=== PATIENT | female | born 1945 | race Caucasian/White ===

== ENCOUNTER 2017-05-29 10:22 | Outpatient (RCR) | payer MEDICARE, MEDICAID ==
[2015-06-17 09:43] VITALS: BMI 38.8
[~2017-05-29 10:22] MED LIST: ALPR-699 PO; ASPI-757 PO; ATOR20TA65 PO; BENA40TA52 PO; CIP500 PO; DIA5 PO; DULO60CA51 PO; DYA PO; GLIM2TAB43 PO; LID5T TOP; LOR5/325 PO; LOR7.5/325 PO; MAX75 PO; METR-1 PO; METXR500 PO; PANT40TA65 PO; PER PO; PRAV20TA66 PO; TRAM-420 PO; TRAM100T22 PO
--- NOTE | 2017-05-29 10:59 | RADIOLOGY IMAGING REPORT ---
FACILITY: [facility] - [place] PATIENT NAME: Larissa Jiménez : 1945 MR: [id number] V: [id number] EXAM DATE: ORDERING PHYSICIAN: STEVE ALLAN TECHNOLOGIST: Location: [facility] Patient: Larissa Jiménez : 1945 Visit/Account:[id number] Date of Sevice: 05/29/2017 AP chest, one view. HISTORY: Sleep apnea. COMPARISON: 06/04/2015, 09/13/2013. Slight fullness is present in the pulmonary saira bilaterally, essentially unchanged. The heart and m ediastinum are otherwise unremarkable. Pulmonary vessels are otherwise unremarkable. The lungs are otherwise clear. The pleural surfaces are unremarkable. No pneumothorax. Degenerative changes are pr esent in the spine. IMPRESSION: Borderline hilar enlargement, unchanged. Otherwise no evidence of acute cardiopulmonary disease. Report Dictated By: Raj Freeman MD at 05/29/2017 10:50 AM Report E-Signed By: Raj Freeman MD at 05/29/2017 10:54 AM WSN:[email or web address]
--- NOTE | 2017-06-01 10:48 | RADIOLOGY IMAGING REPORT ---
FACILITY: [facility] - [place], [place] PATIENT NAME: EDEN HUERTA : [id number] MR: [id number] V: [id number] EXAM DATE: ORDERING PHYSICIAN: STEVE ALLAN TECHNOLOGIST: Namrata Thorne EXAMINATION:TWO-DIMENSIONAL ECHOCARDIOGRAPH REASON:SYSTOLIC MURMUR/PRESURG/SOB 2D Measurements (normal values in centimeters) LV endLV endRV endVent.LV PostAorticLeftPercent DiastolicSystolicDiastolicSeptumWallRootAtriumShortening (3.5-5.7)(0.9-2.6)(0.6-1.1)(0.6-1.1)(2.0-3.7)(1.9-4.0)(25-35%) [id number]% STROKE VOLUME: 49ml ESTIMATED EJECTION FRACTION:71% PARASTERNAL LONG AXIS: Overall left ventricular systolic function appears to be normal. Right ventricle appears to be mildly enlarged. There is somewhat asymmetric left ventricular thickening more along the interventricular septum. Color examination of the valves revealed a trace of mitral & aortic insufficiency present. The aortic valve area appears to be mildly stenotic. There is calcification of the aortic valve leaflets. Trace of tricuspid insufficiency is also noted. PARASTERNAL SHORT AXIS: Overall left ventricular function appears to be normal. Right ventricle appears to be mildly enlarged. The aortic valve is trileaflet in configuration & appears to be borderline stenotic with calcification of the valve leaflets. Trace of aortic insufficiency is noted. Trace to mild amount of pulmonic insufficiency is also noted. APICAL FOUR AND TWO CHAMBER: Normal left ventricular ejection fraction. Right ventricle mildly enlarged. The aortic valve area was measured at 1.6cm2 with a mean pressure gradient across the valve of 17mm Hg & a dimensionless index of .6 indicating mild aortic stenosis. Mitral valve area is measured within normal ranges at 3.5cm2. The left atrial & right atrial volumes are measured within normal ranges at 17 & 13ml/m2. The tricuspid regurgitation Vmax measured 1.87m/sec. SUBCOSTAL VIEW: No pericardial effusion was noted. No atrioseptal or ventriculoseptal defects were appreciated. There is mild thinning of the inner atrial septum in the foramen ovale area. Doppler examination of the mitral valve in diastole does reveal the A wave > E wave. Definity contrast was used with no significant gradient to the left ventricle. OVERALL IMPRESSION: 1. Normal left ventricular ejection fraction of 71% with a mild decrease in diastolic function. 2. There is somewhat asymmetric left ventricular thickening more along the interventricular septum which is moderately enlarged. No outflow tract obstruction. No obstruction through the left ventricle was noted. Definity contrast was used. 3. Mild right ventricular enlargement. 4. A trileaflet aortic valve which is mildly stenotic with a valve area of 1.67cm2. The mean pressure gradient across the valve was 17mm Hg & a dimensionless index of .6. There is also a trace of aortic insufficiency. 5. A trace of mitral & tricuspid insufficiency with estimated right ventricular systolic pressure within normal ranges at 17mm Hg. 6. There is a mild amount of pulmonic insufficiency presenst. Dictated by: Yen Pate M.D. on 05/31/2017 at 20:31 Transcribed by: LANDON on 06/01/2017 at 9:31 Approved by: Yen Pate M.D. on 06/01/2017 at 10:47 [facility]
== END 2017-05-31 18:00 | disposition home or self-care (01) ==
LOC: RAD 10:22
PROVIDERS: ATTEND Family Medicine
DX: Z01.818 Encounter for other preprocedural examination (principal); R01.1 Cardiac murmur, unspecified; I51.7 Cardiomegaly; I35.1 Nonrheumatic aortic (valve) insufficiency; I34.0 Nonrheumatic mitral (valve) insufficiency; I36.1 Nonrheumatic tricuspid (valve) insufficiency; I37.1 Nonrheumatic pulmonary valve insufficiency
CPT/HCPCS: 71045; 93306

== ENCOUNTER → 2017-06-02 | Outpatient (REF) | payer MEDICARE, MEDICAID ==
[2015-06-17 09:43] VITALS: BMI 38.8
== END ==
LOC: ZZSENDIN 10:59
PROVIDERS: ATTEND Family Medicine
DX: Z01.812 Encounter for preprocedural laboratory examination (principal)
CPT/HCPCS: 81001

== ENCOUNTER → 2017-06-12 | Outpatient (REF) | payer MEDICARE, MEDICAID ==
[2015-06-17 09:43] VITALS: BMI 38.8
== END ==
LOC: ZZSENDIN 12:06
PROVIDERS: ATTEND Family Medicine
DX: Z01.812 Encounter for preprocedural laboratory examination (principal)
CPT/HCPCS: 81001

== ENCOUNTER → 2017-08-30 | Outpatient (CLI) | payer MEDICARE, MEDICAID ==
[2015-06-17 09:43] VITALS: BMI 38.8
== END ==
LOC: RESP 19:32
PROVIDERS: ATTEND Registered Nurse
DX: G47.33 Obstructive sleep apnea (adult) (pediatric) (principal); G47.61 Periodic limb movement disorder; G47.36 Sleep related hypoventilation in conditions classified elsewhere

== ENCOUNTER → 2017-10-20 | Outpatient (REF) | payer MEDICARE, MEDICAID ==
[2015-06-17 09:43] VITALS: BMI 38.8
== END ==
LOC: ZZSENDIN 13:38
PROVIDERS: ATTEND Family Medicine
DX: Z01.812 Encounter for preprocedural laboratory examination (principal)
CPT/HCPCS: 81001

== ENCOUNTER 2017-10-31 02:33 | Inpatient (IN) | payer MEDICARE, MEDICAID ==
[2017-10-30 14:53] LABS: INR 0.93
[~2017-10-31] VITALS: Ht 165.1 cm; Wt 103.4 kg
[2017-10-31] VITALS (15 sets, daily range): BP systolic 97–158; BP diastolic 62–102
[~2017-10-31 02:33] MED LIST changes: +DIAZ-308 PO; +LOSA100T67 PO; +RISP-29 PO
--- NOTE | 2017-10-31 07:36 | LEVENE H&P ---
DATE OF ADMISSION: October 31, 2017 IDENTIFICATION/CHIEF COMPLAINT The patient is a 71-year-old woman with a chief complaint of left hip pain. HISTORY OF PRESENT ILLNESS The patient has a longstanding history of hip arthritis, progressively painful and debilitating and refractory to conservative care. Surgery is indicated to relieve symptoms after failure of nonoperative measures. PAST MEDICAL HISTORY 1. Heart murmur. 2. Hypertension. 3. Sleep apnea. 4. Diabetes. PAST SURGICAL HISTORY 1. Back operation. 2. Contralateral hip replacement. 3. Hysterectomy. 4. Cholecystectomy. ALLERGIES PROZAC and AMBIEN. CURRENT MEDICATIONS 1. Duloxetine 6 mg p.o. every day. 2. Pantoprazole 40 mg p.o. every day. 3. Losartan 100 mg p.o. every day. 4. Atorvastatin 12.5 mg p.o. every day. 5. Metformin 500 mg p.o. b.i.d. 6. Triamterene/hydrochlorothiazide 75/50 p.o. 1/2 tablet every day. FAMILY HISTORY Brother with cancer and stroke. SOCIAL HISTORY Negative for tobacco and alcohol use. REVIEW OF SYSTEMS Negative. PHYSICAL EXAMINATION GENERAL: This is a well-developed, well-nourished female who appears stated age. HEENT: Normocephalic, atraumatic. NECK: Supple. LUNGS: Clear. HEART: Regular. ABDOMEN: Soft. ORTHOPEDIC EXAMINATION Left hip is stiff with limits of rotation. This reproduces her pain. Hip girdle strength is normal. Skin envelope is intact. Calves are nontender. Neurovascular function is intact. RADIOGRAPHS Radiographs demonstrate end-stage hip arthritis. ASSESSMENT Left hip end-stage degenerative joint disease, progressively painful and debilitating, refractory to conservative care. PLAN Per patient request, we are going to proceed with total hip arthroplasty. The nature of the procedure, risks, benefits and the anticipated rehabilitative course were reviewed. Risks include, but are not limited to, , major medical or anesthetic complication, infection, neurovascular injury, blood transfusion, stiffness, scarring, fracture, tendon rupture, instability, leg length discrepancy, implant loosening, migration or failure, need for additional surgery and other unforeseen. She understands and wishes to proceed. A signed permit is placed in the chart. No guarantees are given or implied. LIZZETH
[2017-10-31] MEDS ORDERED: CELECOXIB 200 MG CAP ONE (09:09)
[2017-10-31] MEDS ORDERED: fentaNYL CITR 100 MCG/2 ML AMP ONE (09:30)
[2017-10-31] MEDS ORDERED: PROPOFOL EMUL(*) 10MG/ML 20 ML 20 ML ONE (09:31)
[2017-10-31] MEDS ORDERED: LIDOCAINE MPF 1% 5 ML VIAL ONE (09:31)
[2017-10-31] MEDS ORDERED: DEXAMETHASONE SOD PHOS 10MG/ML ONE (09:31)
[2017-10-31] MEDS ORDERED: ONDANSETRON 4 MG/2 ML VIAL ONE (09:31)
[2017-10-31] MEDS ORDERED: PHENYLEPHRINE 10 MG/1 ML VIAL ONE (11:00)
[2017-10-31] MEDS ORDERED: MIDAZOLAM 2 MG/2 ML VIAL IVP PRN (11:15)
[2017-10-31] MEDS ORDERED: LIDOCAINE/SOD BICARB 8.4% SYR ID ONE (11:15)
[2017-10-31] MEDS ORDERED: TRANEXAMIC AC 1000 MG/10ML SDV 1,000 MG in DEXTROSE 5% 50 ML BAG 50 ML IV ONE (11:15)
[2017-10-31] MEDS ORDERED: cloNIDine EPIDUR INJ 100MCG/ML 40 MCG, ROPIVACAINE 0.5% 20 ML VIAL 25 ML, EPINEPHrine H... INJ ONE (11:15)
[2017-10-31] MEDS ORDERED: CELECOXIB 200 MG CAP PO ONE (11:15)
[2017-10-31] MEDS ORDERED: NORMOSOL R SOLN(*) 1000 ML BAG 1,000 ML IV PRN ×2 (11:15→13:40)
[2017-10-31] MEDS ORDERED: ACETAMINOPHEN 500 MG TAB PO ONE (11:15)
[2017-10-31] MEDS ORDERED: ceFAZolin(*) 2GM/D5W 50ML 50 ML IVPB ONE (11:15)
[2017-10-31] MEDS ORDERED: PREGABALIN 75 MG CAPSULE PO ONE (11:15)
[2017-10-31] MEDS ORDERED: NS 0.9% IRRIGATION 1000ML PLCT IR ONE (12:05)
[2017-10-31] MEDS ORDERED: LACTATED RINGER 3000 ML BAG IR ONE (12:05)
[2017-10-31] MEDS ORDERED: VANCOMYCIN 1 GM VIAL ONE (12:37)
[2017-10-31] MEDS ORDERED: PROMETHAZINE 25 MG/ML 1 ML AMP IVP PRN (13:40)
[2017-10-31] MEDS ORDERED: MAGNESIUM HYDROXIDE* 30ML UDCP PO PRN (13:40)
[2017-10-31] MEDS ORDERED: ACETAMINOPHEN 325 MG TAB PO PRN (13:40)
[2017-10-31] MEDS ORDERED: BISACODYL 10 MG SUPP PR PRN (13:40)
[2017-10-31] MEDS ORDERED: BENZOCAINE/MENTHOL 1 EACH LOZG PO PRN (13:40)
[2017-10-31] MEDS ORDERED: diphenhydrAMINE 50 MG/ML VIAL IVP PRN (13:40)
[2017-10-31] MEDS ORDERED: DIAZEPAM 5 MG TAB PO PRN (13:40)
[2017-10-31] MEDS ORDERED: diphenhydrAMINE 25 MG CAP PO PRN (13:40)
[2017-10-31] MEDS ORDERED: FLUSH 10 ML SYR IVP PRN (13:40)
--- NOTE | 2017-10-31 14:51 | RADIOLOGY IMAGING REPORT ---
FACILITY: [facility] PATIENT NAME: Larissa Jiménez : 1945 MR: [id number] V: [id number] EXAM DATE: ORDERING PHYSICIAN: JOSH ALEMAN TECHNOLOGIST: Location: [facility] - [place] Patient: Larissa Jiménez : 1945 Visit/Account:[id number] Date of Sevice: 10/31/2017 PELVIS INDICATION: Postop left total hip COMPARISON: 06/16/2015 FINDINGS: Compared to the prior study, patient has undergone left DARRON. Two-part cementless prosthetic appears in good alignment. The visualized pelvis is intact IMPRESSION: 1. Unremarkable left DARRON Report Dictated By: Mike Tompkins at 10/31/2017 2:45 PM Report E-Signed By: Mike Tompkins at 10/31/2017 2:47 PM WSN:[email or web address]
--- NOTE | 2017-10-31 16:00 | Hospitalist Consultation ---
History of Present Illness Requesting Physician Dr. Gomez Reason for Consult Medical Management Chief Complaint s/p left total hip replacement History of Present Illness She was admitted s/p left total hip replacement. It is reported the surgery went well and without complication. History Problems: (1) JORGE (obstructive sleep apnea) Status: Chronic (2) Depression with anxiety Status: Chronic (3) Type 2 diabetes mellitus Status: Chronic (4) HTN (hypertension) Status: Chronic (5) GERD (gastroesophageal reflux disease) Status: Chronic (6) Hyperlipidemia Status: Chronic Home Meds Reported Medications Losartan Potassium (LOSARTAN POTASSIUM) 100 Mg Tablet, 100 MG PO QDAY 10/24/17 Risperidone (RISPERDAL) 1 Mg Tablet, 1 MG PO HS 10/24/17 Diazepam (DIAZEPAM) 5 Mg Tablet, 5 MG PO DAILY, #5 TAB 10/24/17 Atorvastatin Calcium (ATORVASTATIN CALCIUM) 20 Mg Tablet, 2 TAB PO QHS, TAB 06/10/15 Tramadol Hcl (TRAMADOL HCL) 50 Mg Tablet, 50 MG PO QID PRN for PAIN, TAB 06/10/15 Pantoprazole Sodium (PANTOPRAZOLE SODIUM) 40 Mg Tablet.dr, 40 MG PO QAM, TAB.SR 09/13/13 Triamterene/Hctz (TRIAMTERENE-HCTZ 75-50 MG TAB) 1 Each Tab, 0.5 TAB PO QAM, TAB 09/13/13 Duloxetine Hcl (Cymbalta) 60 Mg Capsule.dr, 60 MG PO BID, 0 Refills 01/30/11 Metformin Hcl (Metformin Er) 500 Mg Tab.sr.24h, 1000 MG PO BID, 0 Refills 01/30/11 Discontinued Reported Medications Hydrocodone Bit/Acetaminophen (HYDROCODON-ACETAMINOPHEN 5-325) 1 Each Tablet, 1- 2 TAB PO Q4-6H PRN for PAIN, #80 TAB 06/18/15 Glimepiride (GLIMEPIRIDE) 2 Mg Tablet, 2 MG PO QAM 09/13/13 Benazepril Hcl 40 MG TAB (Benazepril Hcl 40 MG TAB) 40 Mg Tablet, 40 MG PO QAM, 0 Refills 01/30/11 Discontinued Scripts Aspirin (ASPIRIN) 325 Mg Tablet, 325 MG PO QDAY for 30 Days, TAB 0 Refills Prov:TINO RANDHAWA MD 06/19/15 Allergies: Coded Allergies: fluoxetine (Verified Allergy, Intermediate, "TRIP WITHOUT LEAVING THE FARM", 06/10/15) zolpidem (Verified Allergy, Intermediate, SHAKES, 10/24/17) Patient History: FHx: colon cancer BROTHER OR SISTER FHx: diabetes mellitus MOTHER FHx: stroke MOTHER TIAs FATHER Hx Smoking: No Smoking Status: Never Smoker Caffeine Intake: Tea Caffeine/Cups Per Day: 1-2 CUPS YEARLY Hx Alcohol Use: No Hx Substance Use Disorder: No Social Drug Use: Never History of IV Drug Use: No Review of Systems All Systems Reviewed/Normal: Yes, Except as Noted Exam Vital Signs Vital Signs Date Time Temp Pulse Resp B/P (MAP) Pulse Ox O2 Delivery O2 Flow Rate FiO2 10/31/17 15:36 Nasal Cannula 2.0 10/31/17 15:15 80 12 91 10/31/17 15:07 97.9 139/72 (94) General Appearance: Alert, Awake, No Acute Distress, Afebrile Neuro: No Gross deficits Cardiovascular: Regular Rate and Rhythm Respiratory: No Respiratory Distress, Clear to Auscultation Psych: Alert & Oriented X3, Appropriate Mood & Affect Assessment and Plan Problems: (1) Status post total hip replacement, left Status: Acute Assessment & Plan: Followed by Dr. Gomez. She will be placed on Aspirin fro VTE prophylaxis. She has no history of DVT or PE. (2) HTN (hypertension) Status: Chronic Assessment & Plan: She is on chronic treatment with Losartan, HCTZ, Triamterene. The losartan has been restarted with hold parameters. (3) Type 2 diabetes mellitus Status: Chronic Assessment & Plan: She is on chronic treatment with Metformin. She will be placed on ADA diet, AC/HS blood glucose monitoring, and SSI #2. (4) JORGE (obstructive sleep apnea) Status: Chronic Assessment & Plan: She did not tolerate CPAP. She does wear 2L oxygen at all times. (5) Depression with anxiety Status: Chronic Assessment & Plan: She is on chronic treatment with Risperdal, Cymbalta and Valium. (6) GERD (gastroesophageal reflux disease) Status: Chronic Assessment & Plan: She is on chronic treatment with Protonix. (7) Hyperlipidemia Status: Chronic Assessment & Plan: She is on chronic treatment with Atorvastatin. Venous Thromboembolism Antithrombotics Is Pt On Any Antithrombotics?: No Exam Sepsis Risk: No Definite Risk Problem Qualifiers (1) HTN (hypertension): Hypertension type: essential hypertension Qualified Codes: I10 - Essential (primary) hypertension RICH GOODRICH [employer] OPERATOR Oct 31, 2017 16:00
[2017-10-31] MEDS: CELECOXIB 200 MG CAP PO SCH (17:35)
[2017-10-31] MEDS: INSULIN HUM LISPRO 100 UN/ML 3 ML VIAL SUBQ PRN ×2 (17:36→20:12)
[2017-10-31] MEDS: ceFAZolin(*) 1 GM VIAL 1 GM in NS(*) 0.9% 100 ML ADDVANT BAG 100 ML IV SCH (19:01)
--- NOTE | 2017-10-31 19:42 | OPERATIVE REPORT 1 ---
EVENT DATE: October 31, 2017 SURGEON: Brent Gomez MD ANESTHESIOLOGIST: Suleiman Barrios MD ANESTHESIA: General plus spinal. HEEL COVER SOFTENER: ELIZA Turpin PREOPERATIVE DIAGNOSIS Left hip degenerative joint disease. POSTOPERATIVE DIAGNOSIS Left hip degenerative joint disease. PROCEDURE PERFORMED Left total hip arthroplasty. ESTIMATED BLOOD LOSS 400 mL DRAINS None. SPECIMENS None. COMPLICATIONS None apparent. IMPLANTS USED Shyanne system with SecurFit Max 132-degree neck, angled hip stem size 9, a Biolox Delta Ceramic C-Taper femoral head 36 mm, +2.5, a Trident PSL VANEGAS cluster acetabular shell 52 with a 36 mm, zero-degree polyethylene X3 liner. INDICATIONS Larissa has with intractable pain and disability related to end-stage hip arthritis. Surgery is indicated to relieve symptoms after failure of nonoperative measures. DESCRIPTION OF PROCEDURE Patient was taken to the operating room, placed supine on the operating table. Spinal block is administered by the anesthesiologist. General anesthesia is induced. Antibiotics and TXA are administered IV. Patient is positioned in the right lateral decubitus on a well-padded pegboard. Pelvis is secured in a vertical position. All bony prominences and superficial nerves are well padded. Left hip girdle and lower extremity are prepped and draped in the usual sterile fashion for orthopedic surgery. A posterolateral incision is made, centered over the tip of the trochanter. Incision is carried down through the skin and subcutaneous tissue down to the deep fascia. Fascia is incised over the center of the tip of the trochanter, extended distally in line with the femur and proximally in line with the ja fibers. Ja fibers are split bluntly. Trochanteric bursa is excised. Interval between the abductor and external rotator is identified. Abductor mechanism is protected with a blunt Hohmann. An L capsulotomy/tenotomy is performed with the horizontal limb above the piriformis, peeling the external rotators and the capsule off the back of the femur. These are tagged with #2 Vicryl for later anatomic reattachment. Femoral head is dislocated. End-stage arthritis is noted. A 1.5 cm neck cut is made consistent with preoperative templating. Femoral head is extracted. Femur is translocated anteriorly. Deirdre-acetabular retractors are placed with the tips down on bone. Labrum and pulvinar are excised. A 44 mm reamer is used to medialize through the true medial wall of the acetabulum. This is expanded in 2 mm increments up to 52 where nice rim contact is obtained. Trial has nice [id number] fit. A 53 is used to open the floor of the acetabulum to accommodate the raised rim liner. The surface is lavaged. The actual shell is impacted in approximately 45 degrees of lateral opening and 15 degrees of anteversion using the internal bony landmarks, transverse acetabular ligament, and the extracorporeal guide to guide socket placement. Rock-solid fixation is achieved. No adjuvant fixation is felt to be needed. A liner is inserted and impacted into the cup. Attention is turned to femoral preparation. The superior neck is resected with a Shoot Extreme cutter. [facility] finds the canal. Tapered reaming is performed up to 9 where good endosteal contact is obtained. Broaching starts with 7 and works up to 9, taking care to lateralize and follow the inaja version of the calcar to about 15 degrees. The 9 broach has good fit and fill. Trial reduction is performed off this, and good protestant of limb length and stability are achievable. The broach is removed, and the actual stem is impacted. It seats at about the same height. The +2.5 neck length seems ideal for protestant of soft tissue tension and stability. Surfaces are lavaged and dried. The Stone taper is cleaned and dried, and then the actual head is impacted onto the Stone taper. Joint is reduced. Drill holes are placed in the posterolateral femur to reattach the external rotators and the capsule anatomically. Hemostasis was assured. Wound margins are distended with a pain cocktail. Deep fascia closed distally with #2 Ethibond, proximally with #2 Vicryl, subcutaneous tissue with 3-0 Vicryl, skin with surgical alfonzo. Xeroform is applied, followed by a dry, sterile dressing and a hip wrap. Patient is rolled supine. Abduction pillow is placed. She is awakened from anesthesia and taken to the recovery room in stable condition having tolerated the procedure well. PLAN Plan is for standard DARRON rehab protocol, weightbearing as tolerated, and posterior hip precautions. [facility]
[2017-10-31] MEDS: metFORMIN HCL XR 500 MG TABCR PO SCH (20:15)
[2017-10-31] MEDS: risperiDONE 1 MG TAB PO SCH (20:15)
[2017-10-31] MEDS: ATORVASTATIN 10 MG TAB PO SCH (20:16)
[2017-10-31] MEDS: DULoxetine HCL 30 MG CAPCR PO SCH (20:16)
[2017-10-31] MEDS: APAP/HYDROCODONE 325/7.5 TAB PO PRN (22:06)
[2017-11-01] VITALS (7 sets, daily range): BP systolic 121–148; BP diastolic 53–82; Ht 165.1 cm; Wt 103.4 kg
[2017-11-01] MEDS: APAP/HYDROCODONE 325/7.5 TAB PO PRN ×4 (03:22→23:43)
[2017-11-01] MEDS: ceFAZolin(*) 1 GM VIAL 1 GM in NS(*) 0.9% 100 ML ADDVANT BAG 100 ML IV SCH ×2 (03:22→11:17)
[2017-11-01] MEDS: DULoxetine HCL 30 MG CAPCR PO SCH ×2 (08:22→20:48)
[2017-11-01] MEDS: ASPIRIN 325 MG TAB PO SCH (08:22)
[2017-11-01] MEDS: metFORMIN HCL XR 500 MG TABCR PO SCH (08:22)
[2017-11-01] MEDS: CELECOXIB 200 MG CAP PO SCH ×2 (08:22→16:57)
[2017-11-01] MEDS: PANTOPRAZOLE SOD 40 MG TABEC PO SCH (08:22)
[2017-11-01] MEDS: LOSARTAN POTASSIUM 50 MG TAB PO SCH (08:23)
--- NOTE | 2017-11-01 11:02 | Hospitalist Progress Note ---
Subjective Progress Notes Subjective She has no complaints this morning. She had no acute events overnight. Patient Complains of: Cardiovascular: No: Chest Pain Respiratory: No: Shortness of Breath Physical Exam Vital Signs Date Time Temp Pulse Resp B/P (MAP) Pulse Ox O2 Delivery O2 Flow Rate FiO2 11/01/17 07:45 97.9 76 16 121/53 (75) 94 Nasal Cannula 1.0 Intake and Output 11/01/17 06:59 Intake Total 2925 ml Output Total 150 ml Balance 2775 ml Intake Oral 600 ml IV Total 2325 ml Output Estimated Blood Loss 150 ml # Voids 3 General Appearance: Alert, Awake, No Acute Distress, Afebrile Neuro: No Gross deficits Cardiovascular: Regular Rate and Rhythm Respiratory: No Respiratory Distress, Clear to Auscultation Psych: Alert & Oriented X3, Appropriate Mood & Affect Assessment and Plan Problems: (1) Status post total hip replacement, left Status: Acute Assessment & Plan: Followed by Dr. Gomez. She will be placed on Aspirin for VTE prophylaxis. She has no history of DVT or PE. (2) HTN (hypertension) Status: Chronic Assessment & Plan: She is on chronic treatment with Losartan, HCTZ, Triamterene. The losartan has been restarted with hold parameters. (3) Type 2 diabetes mellitus Status: Chronic Assessment & Plan: She is on chronic treatment with Metformin. She will be placed on ADA diet, AC/HS blood glucose monitoring, and SSI #2. (4) JORGE (obstructive sleep apnea) Status: Chronic Assessment & Plan: She did not tolerate CPAP. She does wear 2L oxygen at all times. (5) Depression with anxiety Status: Chronic Assessment & Plan: She is on chronic treatment with Risperdal, Cymbalta and Valium. (6) GERD (gastroesophageal reflux disease) Status: Chronic Assessment & Plan: She is on chronic treatment with Protonix. (7) Hyperlipidemia Status: Chronic Assessment & Plan: She is on chronic treatment with Atorvastatin. Exam Sepsis Risk: No Definite Risk Problem Qualifiers (1) HTN (hypertension): Hypertension type: essential hypertension Qualified Codes: I10 - Essential (primary) hypertension RICH GOODRICH GAMBLING CASHIER Nov 01, 2017 11:02
[2017-11-01] MEDS ORDERED: METF-411 PO (16:05)
[2017-11-01] MEDS: ATORVASTATIN 10 MG TAB PO SCH (20:48)
[2017-11-01] MEDS: risperiDONE 1 MG TAB PO SCH (20:48)
[2017-11-01] MEDS: INSULIN HUM LISPRO 100 UN/ML 3 ML VIAL SUBQ PRN (20:49)
[2017-11-02 02:56] VITALS: BP 159/80
[2017-11-02] MEDS: APAP/HYDROCODONE 325/7.5 TAB PO PRN ×4 (05:17→21:41)
[2017-11-02 07:02] VITALS: BP 123/69
[2017-11-02] MEDS: ASPIRIN 325 MG TAB PO SCH (08:41)
[2017-11-02] MEDS: PANTOPRAZOLE SOD 40 MG TABEC PO SCH (08:41)
[2017-11-02] MEDS: CELECOXIB 200 MG CAP PO SCH ×2 (08:41→16:43)
[2017-11-02] MEDS: DULoxetine HCL 30 MG CAPCR PO SCH ×2 (08:42→21:27)
[2017-11-02] MEDS: metFORMIN HCL 500 MG TAB PO SCH ×2 (08:42→21:27)
[2017-11-02] MEDS: LOSARTAN POTASSIUM 50 MG TAB PO SCH (08:51)
[2017-11-02 08:52] VITALS: BP 147/63
[2017-11-02] MEDS ORDERED: ASPI-757 PO (12:12)
--- NOTE | 2017-11-02 12:26 | Hospitalist Progress Note ---
Subjective Progress Notes Subjective She has no complaints this morning. She had no acute events overnight. Patient Complains of: Cardiovascular: No: Chest Pain Respiratory: No: Shortness of Breath Physical Exam Vital Signs Date Time Temp Pulse Resp B/P (MAP) Pulse Ox O2 Delivery O2 Flow Rate FiO2 11/02/17 08:52 147/63 (91) 11/02/17 07:02 94 Nasal Cannula 2.0 11/02/17 07:02 97.5 79 14 Intake and Output 11/02/17 06:59 Intake Total 2683 ml Balance 2683 ml Intake Oral 2580 ml IV Total 103 ml # Voids 8 # Emeses 1 General Appearance: Alert, Awake, No Acute Distress, Afebrile Neuro: No Gross deficits Cardiovascular: Regular Rate and Rhythm Respiratory: No Respiratory Distress, Clear to Auscultation Psych: Alert & Oriented X3, Appropriate Mood & Affect Assessment and Plan Problems: (1) Status post total hip replacement, left Status: Acute Assessment & Plan: Followed by Dr. Gomez. She will be placed on Aspirin for VTE prophylaxis. She has no history of DVT or PE. (2) HTN (hypertension) Status: Chronic Assessment & Plan: She is on chronic treatment with Losartan, HCTZ, Triamterene. These medications have been restarted with hold parameters. (3) Type 2 diabetes mellitus Status: Chronic Assessment & Plan: She is on chronic treatment with Metformin. She will be placed on ADA diet, AC/HS blood glucose monitoring, and SSI #2. (4) JORGE (obstructive sleep apnea) Status: Chronic Assessment & Plan: She did not tolerate CPAP. She does wear 2L oxygen at all times. (5) Depression with anxiety Status: Chronic Assessment & Plan: She is on chronic treatment with Risperdal, Cymbalta and Valium. (6) GERD (gastroesophageal reflux disease) Status: Chronic Assessment & Plan: She is on chronic treatment with Protonix. (7) Hyperlipidemia Status: Chronic Assessment & Plan: She is on chronic treatment with Atorvastatin. Exam Sepsis Risk: No Definite Risk Problem Qualifiers (1) HTN (hypertension): Hypertension type: essential hypertension Qualified Codes: I10 - Essential (primary) hypertension RICH GOODRICH [facility] Nov 02, 2017 12:26
[2017-11-02 15:01] VITALS: BP 128/67
[2017-11-02 20:35] VITALS: BP 142/62
[2017-11-02] MEDS: risperiDONE 1 MG TAB PO SCH (21:27)
[2017-11-02] MEDS: ATORVASTATIN 10 MG TAB PO SCH (21:27)
[2017-11-02] MEDS: INSULIN HUM LISPRO 100 UN/ML 3 ML VIAL SUBQ PRN (21:28)
[2017-11-02 23:11] VITALS: BP 150/62
[2017-11-03 04:37] VITALS: BP 135/68
[2017-11-03 07:19] VITALS: BP 138/58
[2017-11-03] MEDS: APAP/HYDROCODONE 325/7.5 TAB PO PRN ×2 (07:52→12:50)
[2017-11-03] MEDS: DULoxetine HCL 30 MG CAPCR PO SCH (08:25)
[2017-11-03] MEDS: PANTOPRAZOLE SOD 40 MG TABEC PO SCH (08:25)
[2017-11-03] MEDS: metFORMIN HCL 500 MG TAB PO SCH (08:25)
[2017-11-03] MEDS: ASPIRIN 325 MG TAB PO SCH (08:25)
[2017-11-03] MEDS: CELECOXIB 200 MG CAP PO SCH (08:27)
[2017-11-03] MEDS: LOSARTAN POTASSIUM 50 MG TAB PO SCH (08:48)
[2017-11-03] MEDS ORDERED: TRIAMTERENE/HCTZ 75-50MG TAB PO SCH (09:00)
[2017-11-03] MEDS ORDERED: HYDR-4308 PO (09:47)
--- NOTE | 2017-11-03 11:32 | Hospitalist Progress Note ---
Subjective Progress Notes Subjective She has no complaints this morning. She had no acute events overnight. Patient Complains of: Cardiovascular: No: Chest Pain Respiratory: No: Shortness of Breath Physical Exam Vital Signs Date Time Temp Pulse Resp B/P (MAP) Pulse Ox O2 Delivery O2 Flow Rate FiO2 11/03/17 09:38 95 Nasal Cannula 1.0 11/03/17 07:19 97.9 81 20 138/58 (84) Intake and Output 11/03/17 06:59 Intake Total 2700 ml Balance 2700 ml Intake Oral 2700 ml # Voids 10 General Appearance: Alert, Awake, No Acute Distress, Afebrile Neuro: No Gross deficits Cardiovascular: Regular Rate and Rhythm Respiratory: No Respiratory Distress, Clear to Auscultation GI: Soft and Non-Tender Psych: Alert & Oriented X3, Appropriate Mood & Affect Assessment and Plan Problems: (1) Status post total hip replacement, left Status: Acute Assessment & Plan: Followed by Dr. Gomez. She will be placed on Aspirin for VTE prophylaxis. She has no history of DVT or PE. (2) HTN (hypertension) Status: Chronic Assessment & Plan: She is on chronic treatment with Losartan, HCTZ, Triamterene. These medications have been restarted with hold parameters. (3) Type 2 diabetes mellitus Status: Chronic Assessment & Plan: She is on chronic treatment with Metformin. She will be placed on ADA diet, AC/HS blood glucose monitoring, and SSI #2. (4) JORGE (obstructive sleep apnea) Status: Chronic Assessment & Plan: She did not tolerate CPAP. She does wear 2L oxygen at all times. (5) Depression with anxiety Status: Chronic Assessment & Plan: She is on chronic treatment with Risperdal, Cymbalta and Valium. (6) GERD (gastroesophageal reflux disease) Status: Chronic Assessment & Plan: She is on chronic treatment with Protonix. (7) Hyperlipidemia Status: Chronic Assessment & Plan: She is on chronic treatment with Atorvastatin. Exam Sepsis Risk: No Definite Risk Problem Qualifiers (1) HTN (hypertension): Hypertension type: essential hypertension Qualified Codes: I10 - Essential (primary) hypertension RICH GOODRICH [facility] Nov 03, 2017 11:32
== END 2017-11-03 13:10 | disposition home health service (06) | DRG 554 ==
LOC: OR 02:33 → MED 15:10
PROVIDERS: ADMIT Orthopaedic Surgery; ATTEND Orthopaedic Surgery
DX: M16.12 Unilateral primary osteoarthritis, left hip (principal); G47.33 Obstructive sleep apnea (adult) (pediatric); F41.8 Other specified anxiety disorders; E11.9 Type 2 diabetes mellitus without complications; I10 Essential (primary) hypertension; K21.9 Gastro-esophageal reflux disease without esophagitis; G89.29 Other chronic pain; E78.5 Hyperlipidemia, unspecified; Z88.8 Allergy status to other drugs, medicaments and biological substances; Z79.84 Long term (current) use of oral hypoglycemic drugs; Z90.49 Acquired absence of other specified parts of digestive tract; Z96.641 Presence of right artificial hip joint
CPT/HCPCS: 36415; 36416; 72170; 82948; 85610; 86850; 86900; 86901; 97161; 97165; C1776; J0171; J0690; J0735; J1100; J1885; J2001; J2250; J2370; J2405; J2704; J2795; J3010; J3370; J7050; J7060

== ENCOUNTER 2017-11-15 05:43 | Emergency (ER) | payer MEDICARE, MEDICAID ==
[2017-11-01 09:11] VITALS: Wt 103.4 kg
--- NOTE | 2017-11-15 05:58 | ER Report ---
History and Physical Time Seen By MD: 05:58 Hx. of Stated Complaint: pt has not been taking her anxiety meds. feels like something is going to happen to her tonight so wants to be checked out. has been up all night from the anxiety (FRANCINE MARRERO MD) Time Seen By MD: 10:10 (SARBJIT BARKSDALE MD) HPI/ROS CHIEF COMPLAINT: anxiety HISTORY OF PRESENT ILLNESS: This is a 72 year old female. She is having severe anxiety. She has been awake all night. She is worried something is going to happen, but does not know what. EMS found that she has not been taking her medicines in her pill box, it appears for several days, although the patient says that she has been taking her medicines. She is requesting something to help with her anxiety now. She says that she has had multiple loose stools over the last few days, reports 4 this morning. She is having urinary urgency as well, but no dysuria. She had a hip replacement by Dr. Gomez here at [facility] a few weeks ago and is doing well getting up with the walker, but is a little slow recently. She has been sweating a lot recently. She denies shortness of breath or chest pain. No abdominal pain. (FRANCINE MARRERO MD) Allergies: Coded Allergies: fluoxetine (Verified Allergy, Intermediate, "TRIP WITHOUT LEAVING THE FARM", 11/15/17) zolpidem (Verified Allergy, Intermediate, SHAKES, 11/15/17) Home Meds Reported Medications Tramadol Hcl (TRAMADOL HCL) 50 Mg Tablet, 50-100 MG PO Q4-6H, TAB 11/15/17 Hydrocodone Bit/Acetaminophen (NORCO 7.5-325 TABLET) 1 Each Tablet, 1 EACH PO Q4H, #50 11/03/17 Metformin Hcl (METFORMIN HCL) 500 Mg Tablet, 1000 MG PO BID, TAB 11/01/17 Losartan Potassium (LOSARTAN POTASSIUM) 100 Mg Tablet, 100 MG PO QDAY 10/24/17 Risperidone (RISPERDAL) 1 Mg Tablet, 1 MG PO HS 10/24/17 Diazepam (DIAZEPAM) 5 Mg Tablet, 5 MG PO DAILY, #5 TAB 10/24/17 Atorvastatin Calcium (ATORVASTATIN CALCIUM) 20 Mg Tablet, 2 TAB PO QHS, TAB 06/10/15 Pantoprazole Sodium (PANTOPRAZOLE SODIUM) 40 Mg Tablet.dr, 40 MG PO QAM, TAB.SR 09/13/13 Triamterene/Hctz (TRIAMTERENE-HCTZ 75-50 MG TAB) 1 Each Tab, 0.5 TAB PO QAM, TAB 09/13/13 Duloxetine Hcl (Cymbalta) 60 Mg Capsule.dr, 60 MG PO BID, 0 Refills 01/30/11 Discontinued Scripts Aspirin (ASPIRIN) 325 Mg Tablet, 325 MG PO QDAY, #30 TAB 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 No acute distress. Eyes: Pupils are equal, round. No pallor, injection or icterus. ENT: Mucous membranes are moist. Normal oral mucosa. Neck: Supple and non tender. No lymphadenopathy. Respiratory: Lungs are clear to auscultation. There are no retractions or accessory muscle use. Cardiovascular: Regular rate and rhythm. No murmurs, gallops or rubs. Normal capillary refill. Trace edema in lower extremities bilaterally. Gastrointestinal: Abdomen is soft and non tender. Nondistended. No masses or organomegaly. Normal active bowel sounds. No costovertebral angle tenderness with percussion. Neurological: Alert and oriented x3. No focal deficits noted. Very anxious, hypervigilant, expresses ideas of possible harm to her but does not have anything concrete she is worried about. Skin: Warm. Diaphoretic. Musculoskeletal: Extremities are nontender. No tenderness in palpation of the cervical, thoracic and lumbar spine. DIFFERENTIAL DIAGNOSIS: After history and physical exam, differential diagnosis was considered for a patient with anxiety, but evidence of not taking her medicines recently, also with concern about diarrhea and urinary changes. ([facility]) Medical Decision Making Data Points Result Diagram: 11/15/17 0657 11/15/17 0657 Laboratory Hematology Test 11/15/17 06:57 11/15/17 08:05 11/15/17 08:40 Red Blood Count 3.37 M/uL (4.17-5.56) Mean Corpuscular Volume 93.4 fL (80.0-96.0) Mean Corpuscular Hemoglobin 31.8 pg (26.0-33.0) Mean Corpuscular Hemoglobin Concent 34.0 g/dL (32.0-36.0) Red Cell Distribution Width 13.5 % (11.5-14.5) Mean Platelet Volume 7.4 fL (7.2-11.1) Neutrophils (%) (Auto) 74.5 % (39.4-72.5) Lymphocytes (%) (Auto) 18.0 % (17.6-49.6) Monocytes (%) (Auto) 6.5 % (4.1-12.4) Eosinophils (%) (Auto) 0.4 % (0.4-6.7) Basophils (%) (Auto) 0.6 % (0.3-1.4) Nucleated RBC Relative Count (auto) 0.0 /100WBC Neutrophils # (Auto) 6.0 K/uL (2.0-7.4) Lymphocytes # (Auto) 1.4 K/uL (1.3-3.6) Monocytes # (Auto) 0.5 K/uL (0.3-1.0) Eosinophils # (Auto) 0.0 K/uL (0.0-0.5) Basophils # (Auto) 0.0 K/uL (0.0-0.1) Nucleated RBC Absolute Count (auto) 0.00 K/uL Sodium Level 130 mmol/L (137-145) Potassium Level 3.0 mmol/L (3.5-5.0) Chloride Level 93 mmol/L (98-107) Carbon Dioxide Level 29 mmol/L (22-31) Blood Urea Nitrogen 10 mg/dl (7-18) Creatinine 0.70 mg/dl (0.52-1.04) Glomerular Filtration Rate Calc > 60.0 Random Glucose 233 mg/dl (75-110) Calcium Level 8.9 mg/dl (8.4-10.2) Total Bilirubin 0.4 mg/dl (0.2-1.3) Aspartate Amino Transf (AST/SGOT) 38 U/L (0-35) Alanine Aminotransferase (ALT/SGPT) 39 U/L (0-56) Alkaline Phosphatase 44 U/L (0-126) Total Protein 6.2 g/dl (6.3-8.2) Albumin 3.4 g/dl (3.5-5.0) Stool Occult Blood (IFOB) Positive (NEGATIVE) Stool Leukocytes, Qualitative Positive Clostridium Difficile Toxin A & B Negative Clostridium difficile Antigen Negative Urine Color Straw Urine Clarity Clear Urine pH 6.0 pH (4.8-9.5) Urine Specific [place] 1.004 Urine Protein Negative mg/dL (NEGATIVE) Urine Glucose (UA) Negative mg/dL (NEGATIVE) Urine Ketones Negative mg/dL (NEGATIVE) Urine Blood Negative (NEGATIVE) Urine Nitrite Negative (NEGATIVE) Urine Bilirubin Negative (NEGATIVE) Urine Urobilinogen Negative mg/dL (0.2-1.9) Urine Leukocyte Esterase Negative (NEGATIVE) Urine RBC None /HPF (0-2/HPF) Urine WBC <1 /HPF (0-5/HPF) Urine Squamous Epithelial Cells None /LPF (NONE-FEW) Urine Bacteria Negative /HPF (NONE-FEW) Urine Mucus None /HPF (NONE-FEW) Chemistry Test 11/15/17 06:57 11/15/17 08:05 11/15/17 08:40 White Blood Count 8.0 k/uL (4.5-11.0) Red Blood Count 3.37 M/uL (4.17-5.56) Hemoglobin 10.7 g/dL (12.0-16.0) Hematocrit 31.5 % (34.0-47.0) Mean Corpuscular Volume 93.4 fL (80.0-96.0) Mean Corpuscular Hemoglobin 31.8 pg (26.0-33.0) Mean Corpuscular Hemoglobin Concent 34.0 g/dL (32.0-36.0) Red Cell Distribution Width 13.5 % (11.5-14.5) Platelet Count 295 K/uL (150-450) Mean Platelet Volume 7.4 fL (7.2-11.1) Neutrophils (%) (Auto) 74.5 % (39.4-72.5) Lymphocytes (%) (Auto) 18.0 % (17.6-49.6) Monocytes (%) (Auto) 6.5 % (4.1-12.4) Eosinophils (%) (Auto) 0.4 % (0.4-6.7) Basophils (%) (Auto) 0.6 % (0.3-1.4) Nucleated RBC Relative Count (auto) 0.0 /100WBC Neutrophils # (Auto) 6.0 K/uL (2.0-7.4) Lymphocytes # (Auto) 1.4 K/uL (1.3-3.6) Monocytes # (Auto) 0.5 K/uL (0.3-1.0) Eosinophils # (Auto) 0.0 K/uL (0.0-0.5) Basophils # (Auto) 0.0 K/uL (0.0-0.1) Nucleated RBC Absolute Count (auto) 0.00 K/uL Glomerular Filtration Rate Calc > 60.0 Calcium Level 8.9 mg/dl (8.4-10.2) Total Bilirubin 0.4 mg/dl (0.2-1.3) Aspartate Amino Transf (AST/SGOT) 38 U/L (0-35) Alanine Aminotransferase (ALT/SGPT) 39 U/L (0-56) Alkaline Phosphatase 44 U/L (0-126) Total Protein 6.2 g/dl (6.3-8.2) Albumin 3.4 g/dl (3.5-5.0) Stool Occult Blood (IFOB) Positive (NEGATIVE) Stool Leukocytes, Qualitative Positive Clostridium Difficile Toxin A & B Negative Clostridium difficile Antigen Negative Urine Color Straw Urine Clarity Clear Urine pH 6.0 pH (4.8-9.5) Urine Specific [place] 1.004 Urine Protein Negative mg/dL (NEGATIVE) Urine Glucose (UA) Negative mg/dL (NEGATIVE) Urine Ketones Negative mg/dL (NEGATIVE) Urine Blood Negative (NEGATIVE) Urine Nitrite Negative (NEGATIVE) Urine Bilirubin Negative (NEGATIVE) Urine Urobilinogen Negative mg/dL (0.2-1.9) Urine Leukocyte Esterase Negative (NEGATIVE) Urine RBC None /HPF (0-2/HPF) Urine WBC <1 /HPF (0-5/HPF) Urine Squamous Epithelial Cells None /LPF (NONE-FEW) Urine Bacteria Negative /HPF (NONE-FEW) Urine Mucus None /HPF (NONE-FEW) Urinalysis Test 11/15/17 08:40 Urine Color Straw Urine Clarity Clear Urine pH 6.0 pH (4.8-9.5) Urine Specific [place] 1.004 Urine Protein Negative mg/dL (NEGATIVE) Urine Glucose (UA) Negative mg/dL (NEGATIVE) Urine Ketones Negative mg/dL (NEGATIVE) Urine Blood Negative (NEGATIVE) Urine Nitrite Negative (NEGATIVE) Urine Bilirubin Negative (NEGATIVE) Urine Urobilinogen Negative mg/dL (0.2-1.9) Urine Leukocyte Esterase Negative (NEGATIVE) Urine RBC None /HPF (0-2/HPF) Urine WBC <1 /HPF (0-5/HPF) Urine Squamous Epithelial Cells None /LPF (NONE-FEW) Urine Bacteria Negative /HPF (NONE-FEW) Urine Mucus None /HPF (NONE-FEW) (SARBJIT BARKSDALE MD) ED Course/Re-evaluation ED Course ED clinical course 72-year-old female endorsed to me at early aspects of my shift patient had reportedly not taken her anti-psychotic and anti-depressive and anxiety medications she came here agitated with a feeling of dread and doom had recent surgery done bilateral ultrasounds showed no DVT head CT was negative Baseline labs were 100% within normal limits other than elevated glucose and some hypo-kalemia patient obviously noncompliant with her medications will diagnosed with anxiety Decision to Disposition Date: Nov 15, 2017 Decision to Disposition Time: 10:11 (SARBJIT BARKSDALE MD) Depart Departure Latest Vital Signs Vital Signs Date Time Temp Pulse Resp B/P (MAP) Pulse Ox O2 Delivery O2 Flow Rate FiO2 11/15/17 07:30 155/69 (97) 11/15/17 07:13 62 19 95 11/15/17 07:02 4.0 (SARBJIT BARKSDALE MD) Impression: Primary Impression: Depression with anxiety Condition: Improved Disposition: HOME OR SELF-CARE Referrals: STEVE ALLAN MD (PCP) 5 Days Patient Instructions: Anxiety (DC) FRANCINE MARRERO MD Nov 15, 2017 05:58 SARJBIT BARKSDALE MD Nov 15, 2017 10:12
[2017-11-15] MEDS ORDERED: TRAM-420 PO (06:28)
[2017-11-15] MEDS ORDERED: LORazepam 2 MG/ML VIAL IVP ONE (06:30)
[2017-11-15 07:08] LABS: PLATELET COUNT, AUTOMATED 295 K/uL (150-450)
--- NOTE | 2017-11-15 09:06 | RADIOLOGY IMAGING REPORT ---
FACILITY: [facility] PATIENT NAME: Larissa Jiménez : 1945 MR: [id number] V: [id number] EXAM DATE: ORDERING PHYSICIAN: FRANCINE MARRERO TECHNOLOGIST: Location: [facility] Patient: Larissa Jiménez : 1945 Visit/Account:[id number] Date of Sevice: 11/15/2017 Exam type: VENOUS DOPP LOWER BILAT EXTREM History: recent hip replacement, leg swelling Comparison: None. Findings: The lower extremity veins were imaged bilaterally including the common femoral veins, greater sapheno us veins, superficial femoral veins, popliteal veins, posterior tibial veins, peroneal veins and ante rior tibial veins revealing no evidence of intraluminal thrombi. The veins were compressible and dem onstrated augmentation. IMPRESSION: 1. No sonographic evidence DVT involving the lower extremity veins bilaterally Report Dictated By: Katie Herr MD at 11/15/2017 9:00 AM Report E-Signed By: Katie Herr MD at 11/15/2017 9:01 AM [id number]
--- NOTE | 2017-11-15 09:26 | RADIOLOGY IMAGING REPORT ---
[place] [facility] [place] NAME: Larissa Jiménez : 1945 MR: [id number] V: [id number] EXAM DATE: ORDERING PHYSICIAN: SARBJIT BARKSDALE TECHNOLOGIST: Location: [facility] Patient: Larissa Jiménez : 1945 Visit/Account:[id number] Date of Sevice: 11/15/2017 HEAD W/O CONTRAST Provided history: Altered mental status Additional pertinent history: none TECHNIQUE: Imaging was obtained from the skull base through the vertex without intravenous contrast. Source images were reformatted in the coronal sagittal planes. One of the following dose optimization techniques was utilized in the performance of this exam: Autom ated exposure control; adjustment of the mA and/or kV according to the patient's size; or use of an i terative reconstruction technique. Specific details can be referenced in the facility's radiology CT exam operational policy. Additional imaging: none COMPARISON STUDIES: No relevant priors FINDINGS: Brain volume: There is prominence of the ventricles, sulci and fissures that is appropriate for age. Acute cortical ischemia: None Chronic cortical and ganglionic ischemia: none significant Hemorrhage: None Masses / edema: None White matter: Only minimal deep white matter hypodensity adjacent to the frontal horns. Vessels: Normal Extra-axial: Heavily calcified pineal gland and a small very likely benign cyst measuring up to 7 mm . Partially of the sella. No obvious optic nerve sheath dilation or flattening of the posterior globes. Calvarium / scalp: Negative Skull base: Limited air cell development right mastoid tip from old inflammatory disease. Visualized sinuses / orbits: negative IMPRESSION: Benign chronic and age-related changes as defined above. No evidence of mass, acute ischemia or hemo rrhage. Small benign cyst of the pineal. Report Dictated By: Jesse Rose MD at 11/15/2017 9:16 AM Report E-Signed By: Jesse Rose MD at 11/15/2017 9:21 AM WSN:[id number]
[2017-11-15 10:20] VITALS: BP 134/55
== END 2017-11-15 10:45 | disposition home or self-care (01) ==
LOC: ER 05:59
DX: F41.8 Other specified anxiety disorders (principal); E34.8 Other specified endocrine disorders
CPT/HCPCS: 70450; 81001; 82274; 82803; 83630; 85025; 87045; 87324; 87449; 93970; 96374; 99284; A4353; J2060; 82040; 82247; 82310; 82374; 82435; 82565; 82947; 84075; 84132; 84155; 84295; 84450; 84460; 84520

== ENCOUNTER → 2017-11-15 | Outpatient (CLI) | payer MEDICARE, MEDICAID ==
[2017-11-01 09:11] VITALS: BMI 37.9
[~2017-11-15] MED LIST changes: +HYDR-4308 PO; -LOSA100T67 PO; +LOSA100T69 PO; +METF-450 PO
== END ==
LOC: AMB 05:30
PROVIDERS: ATTEND Nurse Practitioner
DX: F41.9 Anxiety disorder, unspecified (principal); R53.1 Weakness
CPT/HCPCS: A0425; A0429

== ENCOUNTER 2018-09-20 07:53 | Emergency (ER) | payer MEDICARE, MEDICAID ==
[2017-11-01 09:11] VITALS: Wt 90.7 kg
[~2018-09-20 07:53] MED LIST changes: -HYDR-4308 PO; +HYDR-654 PO; -LOSA100T69 PO; +LOSA100T75 PO
--- NOTE | 2018-09-20 07:56 | ER Report ---
History and Physical Time Seen By MD: 07:53 HPI/ROS CHIEF COMPLAINT: Left wrist foreign body HISTORY OF PRESENT ILLNESS: Patient is a 73-year-old female here with complaints of a foreign body in the left wrist. Patient describes that she swallowed a small object reportedly enter her left wrist while she was in bed this morning. Patient reports that the object had small tentacles and was black in the center. She reports that she watched the object and to her left wrist with subsequent development of mild swelling at the site. There is no erythema or tenderness on palpation time of arrival. REVIEW OF SYSTEMS: Constitutional: No fever, no chills. Musculoskeletal: Left wrist foreign body Skin: No rashes. Neurological: Neurovascular exam intact distal to the site of entry Allergies: Coded Allergies: fluoxetine (Verified Allergy, Intermediate, "TRIP WITHOUT LEAVING THE FARM", 09/20/18) zolpidem (Verified Allergy, Intermediate, SHAKES, 09/20/18) Home Meds Reported Medications Tramadol Hcl (TRAMADOL HCL) 50 Mg Tablet, 50-100 MG PO Q4-6H, TAB 11/15/17 Hydrocodone Bit/Acetaminophen (NORCO 7.5-325 TABLET) 1 Each Tablet, 1 EACH PO Q4H, #50 11/03/17 Metformin Hcl (METFORMIN HCL) 500 Mg Tablet, 1000 MG PO BID, TAB 11/01/17 Losartan Potassium (LOSARTAN POTASSIUM) 100 Mg Tablet, 100 MG PO QDAY 10/24/17 Risperidone (RISPERDAL) 1 Mg Tablet, 1 MG PO HS 10/24/17 Diazepam (DIAZEPAM) 5 Mg Tablet, 5 MG PO DAILY, #5 TAB 10/24/17 Atorvastatin Calcium (ATORVASTATIN CALCIUM) 20 Mg Tablet, 2 TAB PO QHS, TAB 06/10/15 Pantoprazole Sodium (PANTOPRAZOLE SODIUM) 40 Mg Tablet.dr, 40 MG PO QAM, TAB.SR 09/13/13 Triamterene/Hctz (TRIAMTERENE-HCTZ 75-50 MG TAB) 1 Each Tab, 0.5 TAB PO QAM, TAB 09/13/13 Duloxetine Hcl (Cymbalta) 60 Mg Capsule.dr, 60 MG PO BID, 0 Refills 01/30/11 Hx Smoking: No Smoking Status: Never Smoker Hx Substance Use Disorder: No Hx Alcohol Use: No Constitutional Vital Sign - Last 24 Hours 09/20/18 08:05 Temp 97.6 Pulse 79 Resp 14 B/P (MAP) 160/97 Pulse Ox 94 O2 Delivery Room Air Physical Exam General Appearance: The patient is alert, has no immediate need for airway protection and no signs of toxicity. No acute distress Neurological: Neurovascular exam intact Skin: Warm and dry, no rashes. Musculoskeletal: Extremities are nontender, nonswollen and have full range of motion. DIFFERENTIAL DIAGNOSIS: After history and physical exam differential diagnosis was considered for foreign body, insect bite, infection Medical Decision Making ED Course/Re-evaluation ED Course Patient is a well-appearing 73-year-old female here with complaints of a foreign body in her left wrist. There is no erythema or palpable tenderness on examination. Patient is neurovascularly intact at time of evaluation. I performed a bedside ultrasound of the left wrist and did not identify foreign bodies, vessels are patent with good blood flow on Doppler imaging. I advised the patient to monitor for signs of infection and to follow-up with her primary care provider. Patient was well-appearing at time of discharge. Return precautions provided. Decision to Disposition Date: Sep 20, 2018 Decision to Disposition Time: 08:15 Depart Departure Latest Vital Signs Vital Signs Date Time Temp Pulse Resp B/P (MAP) Pulse Ox O2 Delivery O2 Flow Rate FiO2 09/20/18 08:05 97.6 79 14 160/97 94 Room Air Impression: Primary Impression: Wrist lesion Condition: Improved Disposition: HOME OR SELF-CARE Referrals: STEVE ALLAN MD (PCP) Patient Instructions: Soft Tissue Foreign Body (ED) Additional Instructions: Please monitor for signs of infection including rash, swelling, fevers or chills. Please follow-up with your family doctor in the next week. Please return promptly if you develop signs of infection. GIGI RAINES DO Sep 20, 2018 07:56
[2018-09-20 08:05] VITALS: BP 160/97
== END 2018-09-20 08:33 | disposition home or self-care (01) ==
LOC: ER 08:02
DX: R22.32 Localized swelling, mass and lump, left upper limb (principal)
CPT/HCPCS: 36416; 82948; 99284